=== PATIENT | male | born 1985 | race Caucasian/White ===

== ENCOUNTER → 2020-12-20 | Outpatient (CLI) | payer OTHER | LOC: M.PUL 10:11 | PROVIDERS: ATTEND Chiropractor | DX: G47.30 Sleep apnea, unspecified (principal); R06.02 Shortness of breath ==

== ENCOUNTER → 2021-01-19 | Outpatient (CLI) | payer OTHER ==
--- NOTE | 2021-02-18 23:31 | SLEEP ---
[address] [address] SLEEP STUDY REPORT Name: DANNI CARTAGENA Room: [facility]#: [id number] Admission: 01/19/21 Attend Phys: Bernard Dodd Discharge: Date of : 87 Report #: [id number] THIS REPORT FOR: cc: APOORVA - No family physician/PCP FAM - No family physician/PCP Marcelo Easley MD ~ DATE OF STUDY: 01/20/2021 SLEEP STUDY INDICATION FOR SLEEP STUDY: Daytime fatigue/sleepiness. INTERPRETATION: Total duration of the study is 434 minutes. During this time duration, the patient was asleep for 358 minutes with an overall sleep efficiency of 83%. Sleep onset initially occurred around 12 minutes of lying down in bed. REM onset was 65 minutes after sleep onset. N1 sleep duration is 8%, N2 duration is 48%, N3 duration is 24%, REM duration is 20%. We did record occasional sleep related respiratory events. These included 2 obstructive apneas, 1 central apnea and 2 hypopneas in addition to 2 respiratory effort-related arousals. Overall, apnea-hypopnea index is normal at 0.8. BODY POSITION DATA: Indicates the patient is lying supine for 199 minutes, the rest of the time the patient is in other positions. There is no obvious positional variation detected. Heart rate is 53. Periodic limb movement index is normal at 0. Arousal index is normal at 4.4. O2 saturations were normal throughout the sleep study. IMPRESSION: This is an essentially unremarkable sleep study. Obstructive sleep apnea is not detected. RECOMMENDATIONS: Recommend clinical correlation and therapy of his sleep complaints. His entire sleep study were reviewed by board certified sleep physicians. <ELECTRONICALLY SIGNED> By: Marcelo Easley MD 02/18/21 [id number] Easley MD /nt
== END ==
LOC: EDUNIT# 12-18 08:57 → M.SLEEPLAB 21:00
PROVIDERS: ATTEND Chiropractor
DX: G47.30 Sleep apnea, unspecified (principal)